=== PATIENT | female | born 1960 | race Caucasian/White ===

== ENCOUNTER 2017-06-16 07:52 | Day surgery (SDC) | payer MEDICARE, MEDICAID ==
[~2017-06-16] VITALS: Ht 160 cm; Wt 63.2 kg
[2017-06-16] VITALS (15 sets, daily range): BP systolic 130–160; BP diastolic 63–88
[~2017-06-16 07:52] MED LIST: ALBU8HFA PO; ASPI-611 PO; ATI0.5T PO; BENA10TA2 PO; BUDE10.2 INH; CIPR7.5D2 LEFTEYE; CYCL-1 PO; DOCU-28 PO; FOLI1TAB34 PO; FURO80TA87 PO; LABE200T PO; LIDO5CRE2 TP; LORA10TA7 PO; PRAM0.253 PO; SEVE800T8 PO; SIMV20TA5 PO; SPIIN INH; TRAM50TA2 PO
[2017-06-16] MEDS ORDERED: albumin (human) 25% 100 ML IV solution IV PRN (08:15)
[2017-06-16] MEDS ORDERED: normal saline 1000ml 1,000 ML IV PRN (08:15)
[2017-06-16] MEDS ORDERED: NIFE10CA PO (08:22)
[2017-06-16] MEDS ORDERED: ZIN220C PO (08:22)
[2017-06-16] MEDS ORDERED: HYDR-4069 PO (08:22)
[2017-06-16] MEDS ORDERED: fentaNYL/PF 50MCG/1 ML 2ML syringe IV PRN (08:25)
[2017-06-16] MEDS ORDERED: midazolam 2 mg/2 ml injection IV PRN (08:25)
[2017-06-16] MEDS ORDERED: fentaNYL/PF 50MCG/1 ML 2ML syringe ONE (08:42)
[2017-06-16] MEDS ORDERED: midazolam 2 mg/2 ml injection ONE (08:42)
[2017-06-16] MEDS ORDERED: iohexol 300mg/ml 100ml inj. ONE (08:45)
[2017-06-16] MEDS ORDERED: iohexol 300 MG/1 ML 50ml polymer ONE (08:45)
[2017-06-16] MEDS ORDERED: heparin 1,000 UNITS/NS 500ml 500 ML ONE (08:46)
[2017-06-16 08:59] LABS: BASOPHILS # (AUTO) 0.1 X10'3 (0-0.2); EOSINOPHILS # (AUTO) 0.4 X10'3 (0-0.9); EOSINOPHILS % (AUTO) 3.9 % (0-6); LYMPHOCYTES # (AUTO) 0.7 X10'3 (1.1-4.8); LYMPHOCYTES % (AUTO) 6.7 % (21-51); MEAN CORPUSCULAR HEMOGLOBIN 33.8 PG (27.0-31.0); MEAN CORPUSCULAR HGB CONC 33.3 % (33.0-36.5); MEAN CORPUSCULAR VOLUME 101.4 FL (78-98); MONOCYTES # (AUTO) 0.3 X10'3 (0-0.9); MONOCYTES % (AUTO) 3.3 % (2-12); NEUTROPHILS # (AUTO) 8.4 X10'3 (1.8-7.7); NEUTROPHILS % (AUTO) 85.1 % (42-75); PLATELET COUNT 456 X10'3 (140-440); RED BLOOD COUNT 4.14 X10'6 (4.20-5.60); RED CELL DISTRIBUTION WIDTH 14.4 % (11.5-14.5); WHITE BLOOD COUNT 9.8 X10'3 (4.5-11.0)
[2017-06-16] MEDS ORDERED: acetaminophen 325mg tablet PO PRN (09:50)
== END 2017-06-16 11:10 | disposition home or self-care (01) ==
LOC: SSTAY O 07:52
PROVIDERS: ATTEND Radiology Diagnostic Radiology
DX: T82.858A Stenosis of other vascular prosthetic devices, implants and grafts, initial encounter (principal); N18.6 End stage renal disease; Z99.2 Dependence on renal dialysis; F17.210 Nicotine dependence, cigarettes, uncomplicated; Z85.528 Personal history of other malignant neoplasm of kidney; Z90.5 Acquired absence of kidney; Z90.49 Acquired absence of other specified parts of digestive tract; Z88.1 Allergy status to other antibiotic agents; Z79.899 Other long term (current) drug therapy; Y83.2 Surgical operation with anastomosis, bypass or graft as the cause of abnormal reaction of the patient, or of later complication, without mention of misadventure at the time of the procedure
CPT/HCPCS: 36415; 36902; 85025; 99152; 99153; A6257; C1725; C1769; C1894; J1644; J2250; J3010; J7030; Q9967; A4620

== ENCOUNTER 2017-12-31 09:52 | Inpatient (IN) | payer MEDICARE, MEDICAID ==
[2017-12-31] VITALS (13 sets, daily range): BP systolic 135–170; BP diastolic 63–99
[~2017-12-31] VITALS: Ht 160 cm; Wt 63.2 kg
[~2017-12-31 09:52] MED LIST changes: -BENA10TA2 PO; +BENA10TA74 PO; +HYDR-4069 PO; -LABE200T PO; +NIFE10CA PO; +ZIN220C PO
[2017-12-31] MEDS ORDERED: acetaminophen w/codeine (30MG) #3 tablet PO ONE (10:45)
[2017-12-31 10:50] LABS: BASOPHILS % (AUTO) 0.1 % (0-1); EOSINOPHILS # (AUTO) 0.2 X10'3 (0-0.9); EOSINOPHILS % (AUTO) 3.3 % (0-6); HEMATOCRIT 39.5 % (35.0-45.0); HEMOGLOBIN 13.6 g/dl (12.0-16.0); LYMPHOCYTES # (AUTO) 0.6 X10'3 (1.1-4.8); LYMPHOCYTES % (AUTO) 8.1 % (21-51); MEAN CORPUSCULAR HGB CONC 34.6 % (33.0-36.5); MEAN CORPUSCULAR VOLUME 98.4 FL (78-98); MEAN PLATELET VOLUME 7.9 FL (7.4-10.4); MONOCYTES # (AUTO) 0.5 X10'3 (0-0.9); MONOCYTES % (AUTO) 6.4 % (2-12); NEUTROPHILS # (AUTO) 6.1 X10'3 (1.8-7.7); NEUTROPHILS % (AUTO) 82.1 % (42-75); PLATELET COUNT 264 X10'3 (140-440); RED BLOOD COUNT 4.01 X10'6 (4.20-5.60); RED CELL DISTRIBUTION WIDTH 14.1 % (11.5-14.5); WHITE BLOOD COUNT 7.4 X10'3 (4.5-11.0)
[2017-12-31] MEDS ORDERED: midazolam 2 mg/2 ml injection IV PRN (10:50)
[2017-12-31] MEDS ORDERED: fentaNYL/PF 50MCG/1 ML 2ML syringe IV PRN (10:50)
[2017-12-31] MEDS ORDERED: LIDOcaine 1%/PF 5ML 10 MG/ML VIAL SQ ONE (10:50)
[2017-12-31] MEDS ORDERED: heparin 1,000 UNITS/NS 500ml 500 ML ICATH ONE (10:50)
[2017-12-31] MEDS ORDERED: midazolam 2 mg/2 ml injection ONE (10:57)
[2017-12-31] MEDS ORDERED: heparin 1,000 UNITS/NS 500ml 500 ML ONE ×2 (10:58→12:15)
[2017-12-31] MEDS ORDERED: fentaNYL/PF 50MCG/1 ML 2ML syringe ONE ×2 (10:58→11:54)
[2017-12-31] MEDS ORDERED: HYDR-4069 PO (10:59)
[2017-12-31] MEDS ORDERED: TRAM50TA2 PO (10:59)
[2017-12-31] MEDS ORDERED: LABE100T5 PO (10:59)
[2017-12-31] MEDS ORDERED: POLY17PO10 PO (10:59)
[2017-12-31] MEDS ORDERED: iohexol 300mg/ml 100ml inj. ONE (11:07)
[2017-12-31] MEDS ORDERED: iohexol 300 MG/1 ML 50ml polymer ONE (11:07)
[2017-12-31] MEDS ORDERED: LIDOcaine 1%/PF 5ML 10 MG/ML VIAL ONE (11:07)
[2017-12-31] MEDS ORDERED: tPA-cathflo 2 MG/2 ml IV flush ONE ×2 (11:42→12:27)
[2017-12-31 12:51] LABS: ABG BASE EXCESS -6.6 mmol/L (-2.0-3.0); ABG HCO3 17.5 mmol/L (22.0-26.0); ABG OXYGEN SATURATION 98.5 % (95-98); ABG PCO2 (T) 30.6 mmHg (32.0-45.0); ABG PH (T) 7.376 (7.350-7.450); ABG PO2 (T) 190.5 mmHg (83-108); FCOHb 4.2 % (0.5-1.5); FLOW 15 L/min; FMetHb 0.3 % (0.3-1.12); FO2Hb 94.1 % (94-100); TOTAL HEMOGLOBIN 11.8 G/dl (12.0-16.0)
[2017-12-31] MEDS ORDERED: acetaminophen 325mg tablet PO PRN ×2 (13:10)
[2017-12-31] MEDS ORDERED: heparin 10,000 units/1 ML INJ IV PRN (13:10)
[2017-12-31] MEDS ORDERED: morphine 4 MG/ML inj SYRINge IV PRN (13:10)
[2017-12-31] MEDS ORDERED: normal saline 1000ml 250 ML IV PRN (13:15)
[2017-12-31] MEDS ORDERED: normal saline 1000ml 100 ML IV PRN (13:15)
[2017-12-31] MEDS ORDERED: LIDOcaine 1% (10mg/ml) 2ml vial SQ ONE (13:15)
[2017-12-31 14:12] LABS: BASOPHILS % (AUTO) 0.2 % (0-1); EOSINOPHILS # (AUTO) 0.2 X10'3 (0-0.9); EOSINOPHILS % (AUTO) 1.3 % (0-6); HEMATOCRIT 39.1 % (35.0-45.0); HEMOGLOBIN 13.2 g/dl (12.0-16.0); LYMPHOCYTES # (AUTO) 0.5 X10'3 (1.1-4.8); LYMPHOCYTES % (AUTO) 3.8 % (21-51); MEAN CORPUSCULAR HEMOGLOBIN 33.8 PG (27.0-31.0); MEAN CORPUSCULAR HGB CONC 33.9 % (33.0-36.5); MEAN CORPUSCULAR VOLUME 99.9 FL (78-98); MEAN PLATELET VOLUME 8.4 FL (7.4-10.4); MONOCYTES # (AUTO) 0.6 X10'3 (0-0.9); MONOCYTES % (AUTO) 4.4 % (2-12); NEUTROPHILS # (AUTO) 12.8 X10'3 (1.8-7.7); NEUTROPHILS % (AUTO) 90.3 % (42-75); PLATELET COUNT 199 X10'3 (140-440); RED BLOOD COUNT 3.91 X10'6 (4.20-5.60); RED CELL DISTRIBUTION WIDTH 14.1 % (11.5-14.5); WHITE BLOOD COUNT 14.2 X10'3 (4.5-11.0)
[2017-12-31 14:22] LABS: INR 1.1 INR; PARTIAL THROMBOPLASTIN TIME 28 SECONDS (22-32); PROTHROMBIN TIME 11.1 SECONDS (9.0-12.0)
[2017-12-31 14:28] LABS: ALANINE AMINOTRANSFERASE 41 U/L (12-78); ALBUMIN 2.8 G/DL (3.4-5.0); ALBUMIN/GLOBULIN RATIO 0.8 (1.1-1.5); ALKALINE PHOSPHATASE 244 IU/L (46-116); ANION GAP 7 (8-16); ASPARTATE AMINO TRANSFERASE 34 U/L (10-37); BILIRUBIN,TOTAL 0.7 MG/DL (0.1-1.0); BLOOD UREA NITROGEN 37 MG/DL (7-18); BUN/CREATININE RATIO 6.7 (6.6-38.0); CALCIUM 8.9 MG/DL (8.5-10.1); CHLORIDE 99 MMOL/L (99-107); CREATININE 5.55 MG/DL (0.40-0.90); GLUCOSE 105 MG/DL (70-104); MAGNESIUM 1.7 MG/DL (1.5-2.4); PHOSPHORUS 5.2 MG/DL (2.3-4.5); SODIUM 134 MMOL/L (135-145); TOTAL CARBON DIOXIDE 28.1 MMOL/L (24-32); TOTAL PROTEIN 6.3 G/DL (6.4-8.2); eGFR 8 ML/MIN
[2017-12-31] MEDS ORDERED: traMADol 50MG tablet PO PRN (14:40)
[2017-12-31] MEDS ORDERED: albuterol 2.5 MG/3 ML nebule NEB PRN (14:45)
[2017-12-31] MEDS ORDERED: diphenhydrAMINE 25mg capsule PO ONE (15:45)
[2017-12-31] MEDS: LORazepam 1 MG tablet PO PRN (15:50)
[2017-12-31] MEDS: sevelamer carbonate 800mg tablet PO SCH (16:30)
[2017-12-31] MEDS: famotidine 20mg tablet PO SCH (20:00)
[2017-12-31] MEDS: docusate sod 100mg capsule PO SCH (20:16)
[2017-12-31] MEDS: hyDRALAzine 10mg tablet PO SCH (20:18)
[2017-12-31] MEDS: furosemide 40mg tablet PO SCH (20:18)
[2017-12-31] MEDS: HYDROcodone/acetaminophen 10/325mg tab PO PRN (20:18)
[2017-12-31] MEDS ORDERED: pramipexole 0.25mg tablet PO PRN (21:00)
[2017-12-31] MEDS: ipratropium 0.5 MG/2.5ML nebule IH SCH (21:17)
[2018-01-01] VITALS (18 sets, daily range): BP systolic 134–168; BP diastolic 63–85
[2018-01-01] MEDS: HYDROcodone/acetaminophen 10/325mg tab PO PRN ×6 (00:25→22:27)
[2018-01-01] MEDS: sevelamer carbonate 800mg tablet PO SCH ×3 (00:27→17:56)
[2018-01-01 01:21] LABS: BASOPHILS % (AUTO) 0.5 % (0-1); EOSINOPHILS # (AUTO) 0.3 X10'3 (0-0.9); EOSINOPHILS % (AUTO) 4.6 % (0-6); HEMATOCRIT 39.7 % (35.0-45.0); HEMOGLOBIN 13.1 g/dl (12.0-16.0); LYMPHOCYTES # (AUTO) 0.7 X10'3 (1.1-4.8); LYMPHOCYTES % (AUTO) 10.8 % (21-51); MEAN CORPUSCULAR VOLUME 100.1 FL (78-98); MEAN PLATELET VOLUME 8.6 FL (7.4-10.4); MONOCYTES # (AUTO) 0.4 X10'3 (0-0.9); MONOCYTES % (AUTO) 5.8 % (2-12); NEUTROPHILS # (AUTO) 5.4 X10'3 (1.8-7.7); NEUTROPHILS % (AUTO) 78.3 % (42-75); PLATELET COUNT 220 X10'3 (140-440); RED BLOOD COUNT 3.97 X10'6 (4.20-5.60); RED CELL DISTRIBUTION WIDTH 13.2 % (11.5-14.5); WHITE BLOOD COUNT 6.8 X10'3 (4.5-11.0)
[2018-01-01 01:23] LABS: ALANINE AMINOTRANSFERASE 34 U/L (12-78); ALBUMIN 2.7 G/DL (3.4-5.0); ALBUMIN/GLOBULIN RATIO 0.8 (1.1-1.5); ALKALINE PHOSPHATASE 236 IU/L (46-116); ANION GAP 7 (8-16); ASPARTATE AMINO TRANSFERASE 23 U/L (10-37); BILIRUBIN,TOTAL 0.4 MG/DL (0.1-1.0); BLOOD UREA NITROGEN 16 MG/DL (7-18); BUN/CREATININE RATIO 4.9 (6.6-38.0); CALCIUM 8.9 MG/DL (8.5-10.1); CHLORIDE 99 MMOL/L (99-107); CREATININE 3.26 MG/DL (0.40-0.90); GLUCOSE 122 MG/DL (70-104); MAGNESIUM 1.8 MG/DL (1.5-2.4); POTASSIUM 3.7 MMOL/L (3.5-5.1); SODIUM 136 MMOL/L (135-145); TOTAL CARBON DIOXIDE 29.7 MMOL/L (24-32); TOTAL PROTEIN 6.3 G/DL (6.4-8.2); eGFR 15 ML/MIN
[2018-01-01] MEDS: ipratropium 0.5 MG/2.5ML nebule IH SCH ×4 (02:31→20:16)
[2018-01-01] MEDS: polyethylene glycol 3350 17gm powd pack PO SCH (08:00)
[2018-01-01] MEDS: aspirin 81mg tab.chew PO SCH (08:09)
[2018-01-01] MEDS: furosemide 40mg tablet PO SCH ×3 (08:09→20:48)
[2018-01-01] MEDS: hyDRALAzine 10mg tablet PO SCH ×3 (08:09→20:48)
[2018-01-01] MEDS: famotidine 20mg tablet PO SCH ×2 (08:09→20:00)
[2018-01-01] MEDS: vitamin B comp w/Vit. C tab 1 TAB TABLET PO SCH (08:09)
[2018-01-01] MEDS: docusate sod 100mg capsule PO SCH ×2 (08:11→20:00)
[2018-01-01] MEDS: ondansetron/PF 4mg/2ml inj IV PRN ×2 (10:28→18:47)
[2018-01-01] MEDS: apixaban 5mg tablet PO SCH ×2 (13:19→20:47)
[2018-01-01] MEDS ORDERED: normal saline 1000ml 250 ML IV SCH (16:35)
[2018-01-02] MEDS: morphine 4 MG/ML inj SYRINge IV PRN ×2 (00:01→04:50)
[2018-01-02] MEDS: ondansetron/PF 4mg/2ml inj IV PRN ×2 (00:27→06:27)
[2018-01-02] MEDS: ipratropium 0.5 MG/2.5ML nebule IH SCH ×4 (02:55→21:03)
[2018-01-02 06:24] LABS: BASOPHILS # (AUTO) 0.1 X10'3 (0-0.2); BASOPHILS % (AUTO) 0.6 % (0-1); EOSINOPHILS # (AUTO) 0.5 X10'3 (0-0.9); EOSINOPHILS % (AUTO) 5.1 % (0-6); HEMOGLOBIN 13.2 g/dl (12.0-16.0); LYMPHOCYTES % (AUTO) 10.7 % (21-51); MEAN CORPUSCULAR HEMOGLOBIN 34.4 PG (27.0-31.0); MEAN CORPUSCULAR HGB CONC 34.9 % (33.0-36.5); MEAN CORPUSCULAR VOLUME 98.8 FL (78-98); MEAN PLATELET VOLUME 8.5 FL (7.4-10.4); MONOCYTES # (AUTO) 0.7 X10'3 (0-0.9); MONOCYTES % (AUTO) 7.3 % (2-12); NEUTROPHILS # (AUTO) 7.1 X10'3 (1.8-7.7); NEUTROPHILS % (AUTO) 76.3 % (42-75); PLATELET COUNT 247 X10'3 (140-440); RED BLOOD COUNT 3.85 X10'6 (4.20-5.60); RED CELL DISTRIBUTION WIDTH 14.7 % (11.5-14.5); WHITE BLOOD COUNT 9.3 X10'3 (4.5-11.0)
[2018-01-02 06:48] LABS: ALANINE AMINOTRANSFERASE 29 U/L (12-78); ALBUMIN/GLOBULIN RATIO 0.8 (1.1-1.5); ALKALINE PHOSPHATASE 223 IU/L (46-116); ANION GAP 8 (8-16); ASPARTATE AMINO TRANSFERASE 15 U/L (10-37); BILIRUBIN,TOTAL 0.4 MG/DL (0.1-1.0); BLOOD UREA NITROGEN 31 MG/DL (7-18); BUN/CREATININE RATIO 5.9 (6.6-38.0); CALCIUM 9.1 MG/DL (8.5-10.1); CHLORIDE 97 MMOL/L (99-107); CREATININE 5.23 MG/DL (0.40-0.90); GLUCOSE 95 MG/DL (70-104); MAGNESIUM 2.1 MG/DL (1.5-2.4); PHOSPHORUS 5.6 MG/DL (2.3-4.5); POTASSIUM 4.4 MMOL/L (3.5-5.1); SODIUM 135 MMOL/L (135-145); TOTAL CARBON DIOXIDE 29.6 MMOL/L (24-32); TOTAL PROTEIN 6.8 G/DL (6.4-8.2); eGFR 8 ML/MIN
[2018-01-02 07:00] VITALS: BP 143/85
[2018-01-02] MEDS: docusate sod 100mg capsule PO SCH ×2 (07:20→20:58)
[2018-01-02] MEDS: vitamin B comp w/Vit. C tab 1 TAB TABLET PO SCH (07:20)
[2018-01-02] MEDS: furosemide 40mg tablet PO SCH ×3 (07:21→20:59)
[2018-01-02] MEDS: apixaban 5mg tablet PO SCH ×2 (07:21→20:58)
[2018-01-02] MEDS: hyDRALAzine 10mg tablet PO SCH ×3 (07:21→20:59)
[2018-01-02] MEDS: famotidine 20mg tablet PO SCH ×2 (07:21→20:00)
[2018-01-02] MEDS: polyethylene glycol 3350 17gm powd pack PO SCH (07:21)
[2018-01-02] MEDS: aspirin 81mg tab.chew PO SCH (07:27)
[2018-01-02] MEDS ORDERED: LIDOcaine 1% (10mg/ml) 2ml vial SQ ONE (08:00)
[2018-01-02] MEDS ORDERED: heparin 1,000 units/ml 10ml inj IV ONE (08:00)
[2018-01-02] MEDS: sevelamer carbonate 800mg tablet PO SCH ×3 (08:23→17:43)
[2018-01-02] MEDS: LORazepam 1 MG tablet PO PRN (09:15)
[2018-01-02 11:00] VITALS: BP 176/79
[2018-01-02] MEDS: HYDROcodone/acetaminophen 10/325mg tab PO PRN ×2 (13:58→20:59)
[2018-01-02 15:00] VITALS: BP 141/73
[2018-01-02 19:00] VITALS: BP 147/70
[2018-01-02 23:00] VITALS: BP 129/57
[2018-01-03] MEDS: ondansetron/PF 4mg/2ml inj IV PRN ×2 (00:41→07:13)
[2018-01-03] MEDS: morphine 4 MG/ML inj SYRINge IV PRN ×2 (00:41→05:24)
[2018-01-03 03:00] VITALS: BP 108/52
[2018-01-03] MEDS: ipratropium 0.5 MG/2.5ML nebule IH SCH (03:21)
[2018-01-03 05:44] LABS: BASOPHILS # (AUTO) 0.1 X10'3 (0-0.2); BASOPHILS % (AUTO) 1.2 % (0-1); EOSINOPHILS # (AUTO) 0.4 X10'3 (0-0.9); EOSINOPHILS % (AUTO) 4.9 % (0-6); HEMATOCRIT 36.3 % (35.0-45.0); HEMOGLOBIN 12.2 g/dl (12.0-16.0); LYMPHOCYTES # (AUTO) 0.7 X10'3 (1.1-4.8); LYMPHOCYTES % (AUTO) 9.7 % (21-51); MEAN CORPUSCULAR HEMOGLOBIN 33.8 PG (27.0-31.0); MEAN CORPUSCULAR HGB CONC 33.6 % (33.0-36.5); MEAN CORPUSCULAR VOLUME 100.6 FL (78-98); MEAN PLATELET VOLUME 8.4 FL (7.4-10.4); MONOCYTES # (AUTO) 0.6 X10'3 (0-0.9); MONOCYTES % (AUTO) 7.7 % (2-12); NEUTROPHILS # (AUTO) 5.7 X10'3 (1.8-7.7); NEUTROPHILS % (AUTO) 76.5 % (42-75); PLATELET COUNT 248 X10'3 (140-440); RED BLOOD COUNT 3.61 X10'6 (4.20-5.60); RED CELL DISTRIBUTION WIDTH 14.7 % (11.5-14.5); WHITE BLOOD COUNT 7.4 X10'3 (4.5-11.0)
[2018-01-03 06:00] VITALS: BP 151/76
[2018-01-03 06:05] LABS: ALANINE AMINOTRANSFERASE 22 U/L (12-78); ALBUMIN 2.7 G/DL (3.4-5.0); ALBUMIN/GLOBULIN RATIO 0.8 (1.1-1.5); ALKALINE PHOSPHATASE 213 IU/L (46-116); ANION GAP 6 (8-16); ASPARTATE AMINO TRANSFERASE 12 U/L (10-37); BILIRUBIN,TOTAL 0.3 MG/DL (0.1-1.0); BLOOD UREA NITROGEN 20 MG/DL (7-18); BUN/CREATININE RATIO 5.1 (6.6-38.0); CALCIUM 8.9 MG/DL (8.5-10.1); CHLORIDE 101 MMOL/L (99-107); CREATININE 3.96 MG/DL (0.40-0.90); GLUCOSE 117 MG/DL (70-104); PHOSPHORUS 4.9 MG/DL (2.3-4.5); POTASSIUM 4.3 MMOL/L (3.5-5.1); SODIUM 137 MMOL/L (135-145); TOTAL CARBON DIOXIDE 29.6 MMOL/L (24-32); TOTAL PROTEIN 6.3 G/DL (6.4-8.2); eGFR 12 ML/MIN
[2018-01-03] MEDS: vitamin B comp w/Vit. C tab 1 TAB TABLET PO SCH (07:13)
[2018-01-03] MEDS: docusate sod 100mg capsule PO SCH (07:13)
[2018-01-03] MEDS: famotidine 20mg tablet PO SCH (07:13)
[2018-01-03] MEDS: sevelamer carbonate 800mg tablet PO SCH (07:13)
[2018-01-03] MEDS: LORazepam 1 MG tablet PO PRN (07:13)
[2018-01-03] MEDS: apixaban 5mg tablet PO SCH (07:14)
[2018-01-03] MEDS: hyDRALAzine 10mg tablet PO SCH (07:14)
[2018-01-03] MEDS: furosemide 40mg tablet PO SCH (07:14)
[2018-01-03] MEDS: aspirin 81mg tab.chew PO SCH (07:20)
[2018-01-03] MEDS: polyethylene glycol 3350 17gm powd pack PO SCH (07:20)
[2018-01-03] MEDS ORDERED: APIX5TAB3 PO (10:59)
[2018-01-03] MEDS ORDERED: HYDR-565 PO (11:11)
== END 2018-01-03 12:10 | disposition home or self-care (01) | DRG 252 ==
LOC: SSTAY O 09:52 → CICU 2S 12:40 → PCU 3S 01-01 14:10
PROVIDERS: ADMIT Internal Medicine Critical Care Medicine; ATTEND Internal Medicine Critical Care Medicine
PROC: 5A12012 Performance of Cardiac Output, Single, Manual (ICD-10-PCS; principal; 2017-12-31)
PROC: 03C53ZZ Extirpation of Matter from Right Axillary Artery, Percutaneous Approach (ICD-10-PCS; 2017-12-31)
PROC: 03C73ZZ Extirpation of Matter from Right Brachial Artery, Percutaneous Approach (ICD-10-PCS; 2017-12-31)
PROC: 03773ZZ Dilation of Right Brachial Artery, Percutaneous Approach (ICD-10-PCS; 2017-12-31)
PROC: 03753ZZ Dilation of Right Axillary Artery, Percutaneous Approach (ICD-10-PCS; 2017-12-31)
PROC: 3E03317 Introduction of Other Thrombolytic into Peripheral Vein, Percutaneous Approach (ICD-10-PCS; 2017-12-31)
PROC: 5A1D70Z Performance of Urinary Filtration, Intermittent, Less than 6 Hours Per Day (ICD-10-PCS; 2017-12-31)
PROC: 5A1D70Z Performance of Urinary Filtration, Intermittent, Less than 6 Hours Per Day (ICD-10-PCS; 2018-01-02)
DX: T82.868A Thrombosis due to vascular prosthetic devices, implants and grafts, initial encounter (principal); I26.99 Other pulmonary embolism without acute cor pulmonale; I46.9 Cardiac arrest, cause unspecified; N18.6 End stage renal disease; I12.0 Hypertensive chronic kidney disease with stage 5 chronic kidney disease or end stage renal disease; R07.81 Pleurodynia; Y83.2 Surgical operation with anastomosis, bypass or graft as the cause of abnormal reaction of the patient, or of later complication, without mention of misadventure at the time of the procedure; F41.9 Anxiety disorder, unspecified; J44.9 Chronic obstructive pulmonary disease, unspecified; F17.200 Nicotine dependence, unspecified, uncomplicated; Z90.5 Acquired absence of kidney; Z99.2 Dependence on renal dialysis; Z79.01 Long term (current) use of anticoagulants; Z79.82 Long term (current) use of aspirin; Z88.8 Allergy status to other drugs, medicaments and biological substances; Z85.528 Personal history of other malignant neoplasm of kidney
CPT/HCPCS: 36415; 36600; 36905; 71045; 80053; 82803; 83735; 84100; 85018; 85025; 85610; 85730; 87070; 92950; 94640; 94760; 99152; 99153; A4620; A6402; A6449; C1725; C1757; C1769; C1894; G0257; J1644; J2001; J2250; J2270; J2405; J2997; J3010; J3490; J7030; Q0163; Q9967

== ENCOUNTER 2018-01-22 06:23 | Day surgery (SDC) | payer MEDICARE, MEDICAID ==
[~2018-01-22] VITALS: Ht 160 cm; Wt 68.4 kg
[~2018-01-22 06:23] MED LIST changes: +APIX5TAB3 PO; -BENA10TA74 PO; -BUDE10.2 INH; -CIPR7.5D2 LEFTEYE; -CYCL-1 PO; -DOCU-28 PO; +HYDR-565 PO; -LIDO5CRE2 TP; -LORA10TA7 PO; +POLY17PO10 PO; -SIMV20TA5 PO; -ZIN220C PO
[2018-01-22 06:40] VITALS: BP 187/106
[2018-01-22] MEDS ORDERED: APIX5TAB3 PO (06:50)
[2018-01-22] MEDS ORDERED: normal saline 1000ml 1,000 ML IV SCH (06:55)
[2018-01-22 07:04] LABS: BASOPHILS # (AUTO) 0.1 X10'3 (0-0.2); BASOPHILS % (AUTO) 1.1 % (0-1); EOSINOPHILS # (AUTO) 0.6 X10'3 (0-0.9); EOSINOPHILS % (AUTO) 5.6 % (0-6); HEMATOCRIT 35.2 % (35.0-45.0); HEMOGLOBIN 12.1 g/dl (12.0-16.0); LYMPHOCYTES # (AUTO) 0.5 X10'3 (1.1-4.8); LYMPHOCYTES % (AUTO) 4.8 % (21-51); MEAN CORPUSCULAR HEMOGLOBIN 33.9 PG (27.0-31.0); MEAN CORPUSCULAR HGB CONC 34.5 % (33.0-36.5); MEAN CORPUSCULAR VOLUME 98.4 FL (78-98); MEAN PLATELET VOLUME 7.9 FL (7.4-10.4); MONOCYTES # (AUTO) 0.5 X10'3 (0-0.9); MONOCYTES % (AUTO) 4.9 % (2-12); NEUTROPHILS # (AUTO) 8.5 X10'3 (1.8-7.7); NEUTROPHILS % (AUTO) 83.6 % (42-75); PLATELET COUNT 398 X10'3 (140-440); RED BLOOD COUNT 3.58 X10'6 (4.20-5.60); RED CELL DISTRIBUTION WIDTH 14.6 % (11.5-14.5); WHITE BLOOD COUNT 10.2 X10'3 (4.5-11.0)
[2018-01-22 07:14] LABS: ALBUMIN 3.1 G/DL (3.4-5.0); ANION GAP 13 (8-16); BLOOD UREA NITROGEN 59 MG/DL (7-18); BUN/CREATININE RATIO 8.9 (6.6-38.0); CALCIUM 9.3 MG/DL (8.5-10.1); CHLORIDE 97 MMOL/L (99-107); CREATININE 6.66 MG/DL (0.40-0.90); GLUCOSE 97 MG/DL (70-104); POTASSIUM 4.5 MMOL/L (3.5-5.1); SODIUM 134 MMOL/L (135-145); TOTAL CARBON DIOXIDE 24.1 MMOL/L (24-32); eGFR 6 ML/MIN
[2018-01-22 07:15] LABS: INR 0.9 INR; PROTHROMBIN TIME 9.6 SECONDS (9.0-12.0)
[2018-01-22] MEDS ORDERED: heparin 1,000unit/ml 10ml vial 10 ML ONE (08:19)
[2018-01-22] MEDS ORDERED: LIDOcaine 1%/PF 5ML 10 MG/ML VIAL ONE ×3 (08:19→09:14)
[2018-01-22] MEDS ORDERED: fentaNYL/PF 50MCG/1 ML 2ML syringe ONE (08:44)
[2018-01-22 09:44] VITALS: BP 201/121
[2018-01-22 09:59] VITALS: BP 181/95
[2018-01-22 10:11] VITALS: BP 154/129
[2018-01-22 10:14] VITALS: BP 168/98
== END 2018-01-22 10:23 | disposition home or self-care (01) ==
LOC: SSTAY O 06:23
PROVIDERS: ATTEND Radiology Diagnostic Radiology
DX: I13.2 Hypertensive heart and chronic kidney disease with heart failure and with stage 5 chronic kidney disease, or end stage renal disease (principal); N18.6 End stage renal disease; I50.9 Heart failure, unspecified; G89.29 Other chronic pain; F17.210 Nicotine dependence, cigarettes, uncomplicated; J44.9 Chronic obstructive pulmonary disease, unspecified; I42.8 Other cardiomyopathies; K21.9 Gastro-esophageal reflux disease without esophagitis; F41.8 Other specified anxiety disorders; Z99.2 Dependence on renal dialysis; Z90.5 Acquired absence of kidney; Z90.49 Acquired absence of other specified parts of digestive tract; Z88.1 Allergy status to other antibiotic agents; Z87.01 Personal history of pneumonia (recurrent); Z79.01 Long term (current) use of anticoagulants; Z85.528 Personal history of other malignant neoplasm of kidney; Z86.711 Personal history of pulmonary embolism; Z99.81 Dependence on supplemental oxygen; Z79.891 Long term (current) use of opiate analgesic; Z79.82 Long term (current) use of aspirin; Z79.899 Other long term (current) drug therapy; Z98.890 Other specified postprocedural states
CPT/HCPCS: 36415; 36558; 76937; 77001; 80048; 85025; 85610; A9270; C1750; C1894; J1644; J2001; J3010; J7030; A4620

== ENCOUNTER 2018-02-13 15:06 | Outpatient (CLI) | payer MEDICARE, MEDICAID ==
[~2018-02-13 15:06] MED LIST changes: -HYDR-565 PO; -PRAM0.253 PO
== END 2018-02-13 23:59 | disposition home or self-care (01) ==
LOC: RAD 15:06
PROVIDERS: ATTEND Nurse Practitioner Family
DX: J90 Pleural effusion, not elsewhere classified (principal); J44.9 Chronic obstructive pulmonary disease, unspecified; I11.0 Hypertensive heart disease with heart failure; I50.9 Heart failure, unspecified; Z79.82 Long term (current) use of aspirin; Z87.891 Personal history of nicotine dependence
CPT/HCPCS: 71046

== ENCOUNTER 2019-01-23 22:29 | Observation (INO) | payer MEDICARE, MEDICAID ==
[~2019-01-23] VITALS: Ht 160 cm; Wt 63.7 kg
[2019-01-23] MEDS ORDERED: methylPREDNISolone sod succ 125mg/2ml vial IV ONE (23:25)
[2019-01-23] MEDS ORDERED: ipratropium/albuterol 3ml nebule NEB ONE (23:25)
[2019-01-23 23:36] LABS: BASOPHILS % (AUTO) 0.3 % (0-1); EOSINOPHILS % (AUTO) 0.4 % (0-6); HEMATOCRIT 32.6 % (35.0-45.0); HEMOGLOBIN 10.8 g/dl (12.0-16.0); LYMPHOCYTES # (AUTO) 0.4 X10'3 (1.1-4.8); LYMPHOCYTES % (AUTO) 3.1 % (21-51); MEAN CORPUSCULAR HEMOGLOBIN 33.2 PG (27.0-31.0); MEAN CORPUSCULAR HGB CONC 33.3 g/dL (33.0-36.5); MEAN CORPUSCULAR VOLUME 99.8 FL (78-98); MEAN PLATELET VOLUME 8.5 FL (7.4-10.4); MONOCYTES # (AUTO) 0.4 X10'3 (0-0.9); MONOCYTES % (AUTO) 3.8 % (2-12); NEUTROPHILS # (AUTO) 10.7 X10'3 (1.8-7.7); NEUTROPHILS % (AUTO) 92.4 % (42-75); PLATELET COUNT 239 X10'3 (140-440); RED BLOOD COUNT 3.26 X10'6 (4.20-5.60); RED CELL DISTRIBUTION WIDTH 15.7 % (11.5-14.5); WHITE BLOOD COUNT 11.6 X10'3 (4.5-11.0)
[2019-01-23 23:48] LABS: ALANINE AMINOTRANSFERASE 95 U/L (12-78); ALBUMIN 3.1 G/DL (3.4-5.0); ALBUMIN/GLOBULIN RATIO 0.9 (1.1-1.5); ALKALINE PHOSPHATASE 231 IU/L (46-116); ANION GAP 15 (8-16); ASPARTATE AMINO TRANSFERASE 64 U/L (10-37); BILIRUBIN,TOTAL 0.5 MG/DL (0.1-1.0); BLOOD UREA NITROGEN 111 MG/DL (7-18); BUN/CREATININE RATIO 12.6 (6.6-38.0); CALCIUM 8.4 MG/DL (8.5-10.1); CHLORIDE 103 MMOL/L (99-107); CREATININE 8.82 MG/DL (0.40-0.90); GLUCOSE 117 MG/DL (70-104); POTASSIUM 4.8 MMOL/L (3.5-5.1); SODIUM 140 MMOL/L (135-145); TOTAL PROTEIN 6.5 G/DL (6.4-8.2); eGFR 5 ML/MIN
[2019-01-24] MEDS ORDERED: LORazepam 2 mg/ml vial IV ONE (01:40)
[2019-01-24] MEDS ORDERED: CARV3.12 PO (02:39)
[2019-01-24] MEDS ORDERED: HYDR-4070 PO (02:39)
[2019-01-24] MEDS ORDERED: FURO80TA3 PO (02:39)
[2019-01-24] MEDS ORDERED: FOLI0.4T2 PO (02:40)
[2019-01-24] MEDS ORDERED: ondansetron/PF 4mg/2ml inj IV PRN (02:40)
[2019-01-24] MEDS ORDERED: furosemide 10 MG/1 ML 10ml inj IV ONE (02:40)
[2019-01-24] MEDS ORDERED: bisacodyl 10mg suppository rectal RC PRN (02:40)
[2019-01-24] MEDS ORDERED: acetaminophen 325mg tablet PO PRN (02:40)
[2019-01-24] MEDS ORDERED: CINA30TA PO (02:41)
[2019-01-24] MEDS ORDERED: MAGN400C PO (02:44)
[2019-01-24] MEDS ORDERED: PRAM0.5T3 PO (02:44)
[2019-01-24] MEDS ORDERED: albuterol 2.5 MG/3 ML nebule NEB PRN (02:50)
[2019-01-24] MEDS ORDERED: LORazepam 1 MG tablet PO PRN (02:50)
[2019-01-24 04:00] VITALS: BP 180/113
[2019-01-24] MEDS ORDERED: pramipexole 0.25mg tablet PO PRN (05:09)
[2019-01-24 05:10] LABS: ABG BASE EXCESS -4.2 mmol/L (-2.0-3.0); ABG HCO3 18.9 mmol/L (22.0-26.0); ABG OXYGEN SATURATION 94.5 % (95-98); ABG PCO2 (T) 27.9 mmHg (35.0-45.0); ABG PH (T) 7.446 (7.350-7.450); ABG PO2 (T) 76.4 mmHg (83-108); FCOHb 1.6 % (0.5-1.5); FLOW 2 L/min; FMetHb 0.1 % (0.3-1.12); FO2Hb 92.9 % (94-100); PATIENT TEMPERATURE 36.2; TOTAL HEMOGLOBIN 11.8 G/dl (12.0-16.0)
[2019-01-24] MEDS ORDERED: furosemide 40mg tablet PO SCH (08:00)
[2019-01-24] MEDS ORDERED: carVEDilol 3.125mg tablet PO SCH (08:00)
[2019-01-24] MEDS ORDERED: predniSONE 5mg tablet PO SCH (08:00)
[2019-01-24] MEDS ORDERED: magnesium oxide 400mg tablet PO SCH (08:00)
[2019-01-24] MEDS ORDERED: polyethylene glycol 3350 17gm powd pack PO SCH (08:00)
[2019-01-24] MEDS ORDERED: hyDRALAzine 10mg tablet PO SCH (08:00)
[2019-01-24] MEDS ORDERED: cinacalcet 30mg tablet PO SCH (08:00)
[2019-01-24] MEDS ORDERED: folic acid 1mg tablet PO SCH (08:00)
[2019-01-24] MEDS ORDERED: apixaban 5mg tablet PO SCH (08:00)
[2019-01-24] MEDS ORDERED: docusate sod 100mg capsule PO SCH (08:00)
[2019-01-24] MEDS ORDERED: normal saline 1000ml 250 ML IV PRN (09:57)
[2019-01-24] MEDS ORDERED: epoetin 20,000 units/ml inj IV ONE (10:00)
[2019-01-24] MEDS ORDERED: heparin 1,000 units/ml 10ml inj IV ONE (10:00)
[2019-01-24] MEDS ORDERED: LIDOcaine 1% (10mg/ml) 2ml vial SQ ONE (10:00)
[2019-01-24] MEDS ORDERED: SEVE800T8 PO (10:23)
[2019-01-24 11:01] LABS: HEMATOCRIT 34.5 % (35.0-45.0); HEMOGLOBIN 11.8 g/dl (12.0-16.0); MEAN CORPUSCULAR HEMOGLOBIN 33.8 PG (27.0-31.0); MEAN CORPUSCULAR HGB CONC 34.1 g/dL (33.0-36.5); MEAN CORPUSCULAR VOLUME 99.1 FL (78-98); MEAN PLATELET VOLUME 8.2 FL (7.4-10.4); PLATELET COUNT 263 X10'3 (140-440); RED BLOOD COUNT 3.48 X10'6 (4.20-5.60); RED CELL DISTRIBUTION WIDTH 15.8 % (11.5-14.5); WHITE BLOOD COUNT 12.8 X10'3 (4.5-11.0)
--- NOTE | 2019-01-24 12:23 | NUR ---
Malnutrition consult: Pt admit w/ respiratory distress hx ESRD on HD missing HD Thursday. PO 100% renal/fluid restricted diet meeting needs; 2L restriction all from nursing per MD order. Pt has no wt loss hx past year from prior admits, meeting needs w/ PO, no edema/wounds, and no significant weakness. Does not meet malnutrition criteria at this time. Addendum: 01/24/19 at [address] Amended: Links added.
[2019-01-24] MEDS ORDERED: LEVO250T58 PO (13:54)
[2019-01-24] MEDS ORDERED: FURO40TA4 PO (14:23)
--- NOTE | 2019-01-24 16:30 | NUR ---
DISCHARGE: Dialysis complete. No issues noted. All necessary DC documents signed, copies released to pt. VSS, RR even-unlabored. SOB continues upon exertion. Pt escorted/ambulated ANNI by family member & [facility] staff. Pt thanked [facility] staff for her care.
[2019-01-25 05:13] LABS: HBSAG SCREEN Negative (Negative)
[2019-01-25] MEDS ORDERED: predniSONE 20 mg tablet PO SCH (08:00)
[2019-01-25] MEDS ORDERED: levoFLOXACIN 250mg tablet PO SCH (08:00)
== END 2019-01-24 16:20 | disposition home or self-care (01) ==
LOC: ER 22:30 → ORTHO 4S 01-24 04:54
DX: R06.03 Acute respiratory distress (principal); G89.29 Other chronic pain; M54.9 Dorsalgia, unspecified; F12.90 Cannabis use, unspecified, uncomplicated; I13.2 Hypertensive heart and chronic kidney disease with heart failure and with stage 5 chronic kidney disease, or end stage renal disease; N18.6 End stage renal disease; I50.9 Heart failure, unspecified; N17.9 Acute kidney failure, unspecified; Z99.2 Dependence on renal dialysis; J44.9 Chronic obstructive pulmonary disease, unspecified; J44.1 Chronic obstructive pulmonary disease with (acute) exacerbation; J90 Pleural effusion, not elsewhere classified; F41.9 Anxiety disorder, unspecified; Z85.528 Personal history of other malignant neoplasm of kidney; Z87.891 Personal history of nicotine dependence; Z79.01 Long term (current) use of anticoagulants; Z87.01 Personal history of pneumonia (recurrent); Z90.5 Acquired absence of kidney; Z99.81 Dependence on supplemental oxygen; J96.10 Chronic respiratory failure, unspecified whether with hypoxia or hypercapnia; E87.70 Fluid overload, unspecified; J18.9 Pneumonia, unspecified organism
CPT/HCPCS: 36415; 36600; 71045; 80053; 82803; 83880; 85018; 85025; 85027; 85610; 87081; 87340; 93005; 94640; 94760; 96372; 96374; 96375; 99284; G0378; J0604; J1644; J1940; J2001; J2060; J2405; J2930; J7512; 99285; G0257

== ENCOUNTER 2020-10-19 06:13 | Day surgery (SDC) | payer MEDICARE, MEDICAID ==
[~2020-10-19] VITALS: Ht 160 cm; Wt 69.9 kg
[~2020-10-19 06:13] MED LIST changes: -ASPI-611 PO; +CARV3.12 PO; +CINA30TA PO; +FOLI0.4T6 PO; -FOLI1TAB34 PO; +FURO40TA4 PO; +FURO80TA3 PO; -FURO80TA87 PO; -HYDR-4069 PO; +HYDR-4070 PO; +LEVO250T58 PO; +MAGN400C PO; +PRAM0.5T3 PO; -SPIIN INH; -TRAM50TA2 PO
[2020-10-19 07:28] VITALS: BP 126/101
[2020-10-19] MEDS ORDERED: LORazepam 2 mg/ml vial IV ONE (08:15)
[2020-10-19 08:41] LABS: BASOPHILS # (AUTO) 0.1 X10'3 (0-0.2); BASOPHILS % (AUTO) 0.6 % (0-1); EOSINOPHILS # (AUTO) 0.4 X10'3 (0-0.9); EOSINOPHILS % (AUTO) 4.3 % (0-6); HEMOGLOBIN 12.9 g/dl (12.0-16.0); LYMPHOCYTES # (AUTO) 0.5 X10'3 (1.1-4.8); LYMPHOCYTES % (AUTO) 5.7 % (21-51); MEAN CORPUSCULAR HEMOGLOBIN 34.3 PG (27.0-31.0); MEAN CORPUSCULAR HGB CONC 33.9 g/dL (33.0-36.5); MEAN CORPUSCULAR VOLUME 101.3 FL (78-98); MEAN PLATELET VOLUME 8.6 FL (7.4-10.4); MONOCYTES # (AUTO) 0.5 X10'3 (0-0.9); MONOCYTES % (AUTO) 5.9 % (2-12); NEUTROPHILS % (AUTO) 83.5 % (42-75); PLATELET COUNT 307 X10'3 (140-440); RED BLOOD COUNT 3.75 X10'6 (4.20-5.60); RED CELL DISTRIBUTION WIDTH 15.8 % (11.5-14.5); WHITE BLOOD COUNT 8.4 X10'3 (4.5-11.0)
[2020-10-19 08:46] LABS: ALBUMIN 3.2 G/DL (3.4-5.0); ANION GAP 16 (8-16); BLOOD UREA NITROGEN 73 MG/DL (7-18); CHLORIDE 100 MMOL/L (99-107); CREATININE 9.13 MG/DL (0.40-0.90); GLUCOSE 102 MG/DL (70-104); POTASSIUM 4.5 MMOL/L (3.5-5.1); SODIUM 138 MMOL/L (135-145); TOTAL CARBON DIOXIDE 22.4 MMOL/L (24-32); eGFR 4 ML/MIN
[2020-10-19] MEDS ORDERED: ondansetron/PF 4mg/2ml inj IV ONE (08:50)
[2020-10-19] MEDS ORDERED: fentaNYL/PF 50MCG/1 ML 2ML syringe ONE (09:16)
[2020-10-19] MEDS ORDERED: midazolam 1 mg/ML 2ml injection ONE (09:16)
[2020-10-19] MEDS ORDERED: LIDOcaine 1%/PF 5ML 10 MG/ML VIAL ONE ×2 (09:16→10:01)
[2020-10-19] MEDS ORDERED: iohexol 300mg/ml 100ml inj. ONE (09:17)
[2020-10-19] MEDS ORDERED: heparin 1,000 UNITS/NS 500ml 500 ML ONE (09:17)
[2020-10-19] MEDS ORDERED: heparin 1,000unit/ml 10ml vial 10 ML ONE (09:51)
[2020-10-19 10:35] VITALS: BP 186/91
[2020-10-19 10:46] VITALS: BP 172/51
[2020-10-19 11:01] VITALS: BP 172/90
[2020-10-19] MEDS ORDERED: HYDROcodone/acetaminophen 10/325mg tab PO ONE (11:10)
== END 2020-10-19 11:20 | disposition home or self-care (01) ==
LOC: SSTAY O 06:13
PROVIDERS: ATTEND Radiology Vascular & Interventional Radiology
DX: T82.868A Thrombosis due to vascular prosthetic devices, implants and grafts, initial encounter (principal); I13.2 Hypertensive heart and chronic kidney disease with heart failure and with stage 5 chronic kidney disease, or end stage renal disease; N18.6 End stage renal disease; J44.9 Chronic obstructive pulmonary disease, unspecified; G89.29 Other chronic pain; Z85.528 Personal history of other malignant neoplasm of kidney; Z98.890 Other specified postprocedural states; Z90.5 Acquired absence of kidney; F12.90 Cannabis use, unspecified, uncomplicated; F17.210 Nicotine dependence, cigarettes, uncomplicated; Z79.899 Other long term (current) drug therapy; Z88.1 Allergy status to other antibiotic agents; Z79.01 Long term (current) use of anticoagulants; Y83.2 Surgical operation with anastomosis, bypass or graft as the cause of abnormal reaction of the patient, or of later complication, without mention of misadventure at the time of the procedure; Y92.89 Other specified places as the place of occurrence of the external cause
CPT/HCPCS: 36415; 36558; 76937; 77001; 80048; 85025; 85610; 99152; 99153; C1750; C1769; C1894; J1644; J2060; J2250; J2405; J3010; Q9967; A9270